=== PATIENT | male | born 1960 | race Caucasian/White ===

== ENCOUNTER 2017-05-03 09:13 | Emergency (ER) | payer BC ==
[2017-05-03] MEDS ORDERED: Albuterol/Ipratropium NEB.SOL* Albuterol 2.5 MG/Ipratropium 0.5 MG 3 ML INH ONE (09:33)
--- NOTE | 2017-05-03 09:33 | UC ---
Respiratory Complaint HPI - HPI Summary HPI Summary: 56 YEAR OLD MALE PRESENTS WITH COMPLAINS OF COUGH AND CHEST CONGESTION AFTER COMING HOME FROM [place]. - History of Current Complaint Stated Complaint: RESPIRATORY Time Seen by Provider: 05/03/17 09:33 - Allergies/Home Medications Allergies/Adverse Reactions: Allergies Allergy/AdvReac Type Severity Reaction Status Date / Time No Known Allergies Allergy Verified 05/03/17 10:17 Home Medications: Home Medications Cyclobenzaprine TAB* [Flexeril 10 MG TAB*] 1 tab PRN 05/03/17 [History] Meloxicam 1 tab PRN 05/03/17 [History] PMH/Surg Hx/FS Hx/Imm Hx Previously Healthy: Yes - Surgical History Surgical History: Yes Surgery Procedure, Year, and Place: Bilateral Knee Arthroscopies. Left Thumb Trigger Finger Release - Family History Known Family History: Positive: None - Social History Alcohol Use: Rare Substance Use Type: None Smoking Status (MU): Heavy Every Day Tobacco Smoker Type: Cigarettes Amount Used/How Often: 1 pack day Have You Smoked in the Last Year: Yes - Immunization History Hx Tetanus, Diphtheria Vaccination: Yes Review of Systems Constitutional: Negative Skin: Negative Eyes: Negative ENT: Negative Respiratory: Cough Cardiovascular: Negative Gastrointestinal: Negative Genitourinary: Negative Motor: Negative Neurovascular: Negative Musculoskeletal: Negative Neurological: Negative Psychological: Negative All Other Systems Reviewed And Are Negative: Yes Physical Exam Triage Information Reviewed: Yes Eye Exam: Normal ENT: Positive: Pharyngeal erythema, Nasal congestion, Nasal drainage Dental Exam: Normal Neck exam: Normal Neck: Positive: 1 Respiratory: Positive: Rhonchi, Wheezing Cardiovascular Exam: Normal Abdominal Exam: Normal Musculoskeletal Exam: Normal Neurological Exam: Normal Psychological Exam: Normal Skin Exam: Normal Respiratory Course/Dx - Differential Dx/Diagnosis Provider Diagnoses: COUGH. CHEST CONGESTION Discharge - Discharge Plan Condition: Stable Disposition: HOME Prescriptions: Albuterol HFA INHALER* [Ventolin HFA Inhaler*] 1 puff INH Q6H PRN #1 mdi PRN Reason: Wheezing Azithromyxin KASEY (NF) [Z-Kasey (Zithromax) 250 mg tabs #6] 2 tab PO .TODAY, THEN 1 DAILY #6 tab guaiFENesin/CODIEN 100MG-10MG* [Robitussin AC 100Mg-10Mg*] 5 ml PO Q6H PRN #120 udc MDD 20 ML PRN Reason: Cough predniSONE TAB* [Deltasone TAB*] 40 mg PO DAILY #10 tab Patient Education Materials: Acute Bronchitis (ED) Referrals: Ryan Pickard MD [Medical Doctor] - If Needed
[2017-05-03] MEDS ORDERED: predniSONE TAB* 20 MG PO ONE (09:34)
[2017-05-03 10:25] VITALS: BP 126/76
== END 2017-05-03 10:34 | disposition home or self-care (01) ==
LOC: UCCORT 09:13
DX: R05 Cough (principal); R09.89 Other specified symptoms and signs involving the circulatory and respiratory systems; F17.210 Nicotine dependence, cigarettes, uncomplicated
CPT/HCPCS: 99212; A9270-GY; G0463; J7512

== ENCOUNTER 2017-06-26 07:17 | Emergency (ER) | payer BC ==
[2017-06-26 07:42] VITALS: BP 128/70
--- NOTE | 2017-06-26 07:43 | UC ---
Respiratory Complaint HPI - HPI Summary HPI Summary: cough, scratchy throat since yesterday. - History of Current Complaint Chief Complaint: UCRespiratory Stated Complaint: SORE THROAT CONGESTION Time Seen by Provider: 06/26/17 07:25 Hx Obtained From: Patient Onset/Duration: Gradual Onset Timing: Constant Severity Initially: Mild Severity Currently: Moderate Character: Cough: Nonproductive Aggravating Factors: Nothing Alleviating Factors: Nothing Associated Signs And Symptoms: Positive: URI, Nasal Congestion, Hoarseness. Negative: Dyspnea, Fever, Chills, Pleuritic Chest Pain, Wheezing, Hemoptysis, Dizziness, Calf Pain, Calf Swelling - Allergies/Home Medications Allergies/Adverse Reactions: Allergies Allergy/AdvReac Type Severity Reaction Status Date / Time No Known Allergies Allergy Verified 06/26/17 07:21 PMH/Surg Hx/FS Hx/Imm Hx Previously Healthy: No - bronchitis - Surgical History Surgical History: Yes Surgery Procedure, Year, and Place: Bilateral Knee Arthroscopies. Left Thumb Trigger Finger Release. CATARACHS - Family History Known Family History: Positive: None - Social History Occupation: Employed Full-time Alcohol Use: Rare Substance Use Type: None Smoking Status (MU): Heavy Every Day Tobacco Smoker Type: Cigarettes Amount Used/How Often: 1 pack day Have You Smoked in the Last Year: Yes Household Exposure Type: Cigarettes - Immunization History Most Recent Influenza Vaccination: MAY 2017 Most Recent Tetanus Shot: UTD Hx Tetanus, Diphtheria Vaccination: Yes Review of Systems Respiratory: Cough All Other Systems Reviewed And Are Negative: Yes Physical Exam Triage Information Reviewed: Yes Vital Signs: Initial Vital Signs Temp 98.3 F 06/26/17 07:24 Pulse 68 06/26/17 07:24 Resp 18 06/26/17 07:24 BP 128/70 06/26/17 07:24 Pulse Ox 97 06/26/17 07:24 Vital Signs Reviewed: Yes Eye Exam: Normal Eyes: Positive: Conjunctiva Clear ENT: Positive: Pharyngeal erythema, TMs normal. Negative: Tonsillar swelling, Tonsillar exudate, Trismus, Muffled/hoarse voice Neck exam: Normal Neck: Positive: Supple, Nontender, No Lymphadenopathy Respiratory Exam: Normal Respiratory: Positive: No respiratory distress, No accessory muscle use. Negative: Respiratory distress, Decreased breath sounds, Accessory muscle use, Crackles, Rhonchi, Stridor, Wheezing Cardiovascular Exam: Normal Cardiovascular: Positive: RRR, No Murmur, Pulses Normal, Brisk Capillary Refill Abdominal Exam: Normal Abdomen Description: Negative: Distended Musculoskeletal Exam: Normal Neurological Exam: Normal Neurological: Positive: Alert, Muscle Tone Normal. Negative: Fatigued Psychological Exam: Normal Skin: Negative: rashes UC Diagnostic Evaluation - Laboratory O2 Sat by Pulse Oximetry: 97 Respiratory Course/Dx - Course Course Of Treatment: uri symptoms. z pack rx for delayed pickle pumper on day 10 if not better as he is a smoker. supportive care described otherwise. - Differential Dx/Diagnosis Provider Diagnoses: uri. chest cold. Discharge - Discharge Plan Condition: Good Disposition: HOME Prescriptions: Azithromycin TAB* [Zithromax TAB (Z-KASEY) 250 mg #6 tabs] 250 mg PO DAILY #6 tab Patient Education Materials: Upper Respiratory Infection (ED) Referrals: Meghna Shahid MD [Primary Care Provider] - If Needed
== END 2017-06-26 07:46 | disposition home or self-care (01) ==
LOC: UCCORT 07:17
DX: J06.9 Acute upper respiratory infection, unspecified (principal); R09.89 Other specified symptoms and signs involving the circulatory and respiratory systems; F17.210 Nicotine dependence, cigarettes, uncomplicated
CPT/HCPCS: 99212; G0463

== ENCOUNTER 2017-10-07 18:03 | Emergency (ER) | payer BC ==
[2017-10-07 19:30] VITALS: BP 148/71
--- NOTE | 2017-10-07 19:45 | UC ---
FLU HPI - HPI Summary HPI Summary: Pt c/o of generalized malaise, fever chills, cough, X 1 week. Pt reports that he did get a flu vaccine this year. - History of Current Complaint Chief Complaint: UCGeneralIllness Stated Complaint: FEVER/CHILLS Time Seen by Provider: 10/07/17 19:34 Hx Obtained From: Patient Onset/Duration: Sudden Onset, Lasting Weeks - 1 Severity Currently: Mild Severity Initially: Mild Associated Signs & Symptoms: Positive: Fever, Myalgia, Cough, Headache Related Hx: Possible Flu/Infectious Exposure - Allergy/Home Medications Allergies/Adverse Reactions: Allergies Allergy/AdvReac Type Severity Reaction Status Date / Time No Known Allergies Allergy Verified 10/07/17 19:30 Home Medications: Home Medications Multiple Vitamins W/ Minerals [Multivitamin Adults] 1 tab PO DAILY 10/07/17 [ History Confirmed 10/07/17] PMH/Surg Hx/FS Hx/Imm Hx Previously Healthy: Yes - Surgical History Surgical History: Yes Surgery Procedure, Year, and Place: Bilateral Knee Arthroscopies. Left Thumb Trigger Finger Release. B/L CATARACT SX - Family History Known Family History: Positive: Cardiac Disease - Social History Occupation: Employed Full-time Lives: With Family Alcohol Use: Rare Substance Use Type: None Smoking Status (MU): Heavy Every Day Tobacco Smoker Type: Cigarettes Amount Used/How Often: 1 pack day Length of Time of Smoking/Using Tobacco: 30 YRS Have You Smoked in the Last Year: Yes Household Exposure Type: Cigarettes - Immunization History Most Recent Influenza Vaccination: 2016 Most Recent Tetanus Shot: UTD Hx Tetanus, Diphtheria Vaccination: Yes Review of Systems Constitutional: Fever, Chills, Fatigue Skin: Negative Eyes: Negative ENT: Negative Respiratory: Cough Cardiovascular: Negative Gastrointestinal: Negative Genitourinary: Negative Motor: Negative Neurovascular: Negative Musculoskeletal: Myalgia Neurological: Negative Psychological: Negative Is Patient Immunocompromised?: No All Other Systems Reviewed And Are Negative: Yes Physical Exam Triage Information Reviewed: Yes Appearance: Ill-Appearing Vital Signs: Initial Vital Signs Temp 100.5 F 10/07/17 19:21 Pulse 93 10/07/17 19:21 Resp 16 10/07/17 19:21 BP 148/71 10/07/17 19:21 Pulse Ox 97 10/07/17 19:21 Vital Signs Reviewed: Yes Eye Exam: Normal ENT Exam: Other ENT: Positive: Nasal congestion Dental Exam: Normal Neck exam: Normal Respiratory Exam: Normal Cardiovascular Exam: Normal Musculoskeletal Exam: Normal Neurological Exam: Normal Psychological Exam: Normal Skin Exam: Normal Flu Course/Dx - Differential Dx/Diagnosis Differential Diagnosis/HQI/PQRI: Bronchitis, Influenza, Pneumonia Provider Diagnoses: Bronchitis Discharge - Discharge Plan Condition: Stable Disposition: HOME Prescriptions: Azithromycin TAB* [Zithromax TAB (Z-KASEY) 250 mg #6 tabs] 2 tab PO .TODAY, THEN 1 DAILY #1 kasey Benzonatate CAP* [Tessalon 100 MG CAP*] 100 mg PO Q8H PRN #15 cap PRN Reason: Cough Patient Education Materials: Acute Bronchitis (ED) Referrals: Meghna Shahid MD [Primary Care Provider] - If Needed Additional Instructions: Please follow up with your PCP or return to clinic as needed. Please note that your Blood pressure was elevated at today's visit. please follow up with your PCP regarding this finding.
== END 2017-10-07 19:52 | disposition home or self-care (01) ==
LOC: UCCORT 18:03
DX: J40 Bronchitis, not specified as acute or chronic (principal); F17.210 Nicotine dependence, cigarettes, uncomplicated
CPT/HCPCS: 87502; 99212; G0463

== ENCOUNTER 2018-01-14 07:02 | Day surgery (SDC) | payer BC ==
--- NOTE | 2018-01-07 10:10 | HP ---
PREOPERATIVE HISTORY AND PHYSICAL: DATE OF SURGERY/ADMISSION: 01/14/18 [facility] DATE OF OFFICE VISIT/ENCOUNTER: 01/06/18 ATTENDING SURGEON: Kala Newsome MD * (DICTATED BY NOLA BELTRAN) PROCEDURE: Right thumb trigger finger release. CHIEF COMPLAINT: Right thumb triggering. HISTORY OF PRESENT ILLNESS: This is a 57-year-old male who complains of triggering and locking of his right thumb. This has been ongoing for quite sometime now. He has recently been seeing Dr. Gruber and has had 3 cortisone injections for the right thumb over time. Each time, the cortisone injection has given him relief, but he is now interested in proceeding with surgical intervention. He does not recall any injury. He denies any associated tingling or numbness. He had a left trigger thumb release done in the past and has done very well with that. PAST MEDICAL HISTORY: 1. Prostate cancer. 2. Sciatica. PAST SURGICAL HISTORY: 1. Left thumb trigger finger release. 2. Bilateral cataracts. 3. Bilateral knee arthroscopies. 4. Hernia repair. CURRENT MEDICATIONS: 1. Cialis 5 mg daily. 2. Cyclobenzaprine HCl 5 mg p.r.n. 3. Meloxicam 15 mg daily. ALLERGIES: No known drug allergies. FAMILY MEDICAL HISTORY: Aortic aneurysm, colon cancer, lung cancer, heart disease. 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 He is a current smoker, he smokes less than a pack per day and has done so for the past 30 years. He denies recreational drug use. He drinks alcohol on an infrequent basis. REVIEW OF SYSTEMS: General: Negative for fevers, chills, or night sweats. No known anesthesia problems. HEENT: Negative for headache, lightheadedness, syncopal episodes. Integumentary: Negative for abrasions, lesions, or open wounds. Cardiothoracic: Negative for hypertension, chest pain, palpitations, or edema. Pulmonary: Negative for shortness of breath with exertion, chronic cough, or COPD. GI: Negative for nausea, vomiting, diarrhea, constipation, or GERD. : Negative for nocturia, urinary frequency, urgency, history of UTIs, or kidney problems. Musculoskeletal: Positive for current complaint. Positive for intermittent back pain/sciatica. Neurological: Negative for paresthesias, numbness, history of seizure, stroke, or epilepsy. Hematologic: Negative for easy bruising, anemia, excessive bleeding, or history of DVT. Infectious Disease: Negative for history of MRSA, hepatitis C, or HIV. PHYSICAL EXAMINATION GENERAL: Well-developed, well-nourished 57-year-old male, in no acute distress. VITAL SIGNS: Height 5 feet 10.5 inches, weight 182 pounds, pulse rate 72, and blood pressure 124/76. HEENT: Normocephalic and atraumatic. Pupils are equal, round, and reactive to light and accommodation. Extraocular movements are intact. NECK: Supple. No palpable lymph nodes. Throat is clear. PULMONARY: Lungs are clear to auscultation bilaterally. No wheezes, rales, or rhonchi. CARDIOVASCULAR: Regular rate and rhythm. S1 and S2. No murmurs, rubs, or gallops. No edema. ABDOMEN: Positive bowel sounds, soft, and nontender. NEUROLOGIC: Alert and oriented x3. Cranial nerves II through XII are intact. Sensation is intact to light touch. MUSCULOSKELETAL: On exam of the right hand, he has tenderness at the A1 marco of the thumb and triggering with flexion. SKIN: Intact. NEUROVASCULAR FUNCTION: Intact. IMPRESSION: Right trigger thumb. PLAN/RECOMMENDATIONS: The patient is scheduled to undergo a right thumb trigger finger release with Dr. Newsome on 01/14/18. He will return to the office 10 days postop for followup and suture removal. A prescription for Ultracet was e-scribed to the patient's pharmacy for postoperative pain management. NOLA BELTRAN [id number]/[facility] #: [id number] SALTY
[~2018-01-14 07:02] MED LIST: Buffered Lidocaine 0.9% SYRIN* 5 ML/SYR SYRINGE INTRADERM ONE; Famotidine TAB* 20 MG PO ONE
[2018-01-14] MEDS ORDERED: fentaNYL* 50 MCG/ML 2 ML VIAL (100 MCG VIAL) ONE (07:38)
[2018-01-14] MEDS ORDERED: Midazolam* 1 MG/ML 5 ML VIAL (5 MG) ONE (07:39)
[2018-01-14] MEDS ORDERED: Famotidine TAB* 20 MG ONE (07:45)
[2018-01-14] MEDS ORDERED: Acetaminophen TAB* 325 MG PO PRN (07:51)
[2018-01-14] MEDS ORDERED: oxyCODONE TAB* 5 MG TAB PO PRN (07:51)
[2018-01-14] MEDS ORDERED: DiMENhydriNATE IV* 50 MG/ML VIAL IV PUSH PRN (07:51)
[2018-01-14] MEDS ORDERED: Naloxone* 0.4 MG/ML 1 ML VIAL IV PRN (07:51)
[2018-01-14] MEDS ORDERED: Lidocaine 1% INJ* 10 MG/ML 30 ML SDV ONE (08:55)
[2018-01-14] MEDS ORDERED: Ketorolac INJ* 30 MG/ML 1 ML VIAL ONE (09:14)
[2018-01-14] MEDS ORDERED: Lidocaine 2% PF * 5 ML VIAL ONE (09:14)
[2018-01-14] MEDS ORDERED: Propofol* 10 MG/ML 20 ML BTL IV PUSH ONE (09:14)
[2018-01-14] MEDS ORDERED: Ondansetron INJ* 2 MG/ML VIAL ONE (09:14)
[2018-01-14 10:07] VITALS: BP 106/68
--- NOTE | 2018-01-15 12:00 | OP ---
CC: Kala Newsome MD OPERATIVE REPORT: DATE OF OPERATION: 01/14/18 DATE OF : 56 SURGEON: Kala Newsome MD BOILING TUB OPERATOR: NOLA Dowling ANESTHESIA: Local MAC. PRE-OP DIAGNOSIS: Right trigger thumb. POST-OP DIAGNOSIS: Right trigger thumb. OPERATIVE PROCEDURE: Right trigger thumb release. ESTIMATED BLOOD LOSS: Zero. TOURNIQUET TIME: Approximately 5 minutes. INDICATIONS FOR PROCEDURE: Enrique is a very pleasant 57-year-old man who complains of triggering an d locking of his right thumb. He previously had a left trigger thumb release with good result, prese nts for the same on the right. DESCRIPTION OF PROCEDURE: The patient was brought to the operating room, was given a sedation anesth etic and a local infiltration of 10 cc of 1% plain lidocaine at the MP flexion crease of his right th umb. Skin of his right hand and forearm was prepped and draped in the usual sterile fashion. The [place] and forearm were exsanguinated and the tourniquet elevated to 250 mmHg. A transverse incision was made centered at the A1 marco of the right thumb. We dissected bluntly through the subcutaneous ti ssue down to the A1 marco. The digital neurovascular bundles were retracted by the surgical assista nt, Anay Chou. The A1 marco was incised longitudinally completely releasing the flexor tendon, which was in good condition. The wound was irrigated and the skin edges reapproximated with 4-0 nyl on suture. The wound was dressed with Xeroform, 4 x 4, Webril, and an Jose wrap. The patient tolerate d the procedure well and was brought to the recovery room in good condition. [id number]/[facility] #: [id number]
== END 2018-01-14 09:50 | disposition home or self-care (01) ==
LOC: OREAST 07:02
PROVIDERS: ATTEND Orthopaedic Surgery
DX: M65.311 Trigger thumb, right thumb (principal); Z85.46 Personal history of malignant neoplasm of prostate; Z72.0 Tobacco use; J43.9 Emphysema, unspecified
CPT/HCPCS: A9270-GY; J1885; J2250; J2405; J2704; J3010

== ENCOUNTER 2018-09-19 07:36 | Emergency (ER) | payer BC ==
[2018-09-19 07:52] VITALS: BP 137/77
--- NOTE | 2018-09-19 08:05 | UC ---
Throat Pain/Nasal Emery HPI - HPI Summary HPI Summary: sore throat x 6 days + nasal congestion , post nasal drip sinus pain and pressure, low grade fever, chills, dry cough - History of Current Complaint Chief Complaint: UCRespiratory Stated Complaint: HEAD/CHEST CONGESTIION SORE THROAT Time Seen by Provider: 09/19/18 07:52 Hx Obtained From: Patient Onset/Duration: Gradual Onset, Lasting Days - 6, Still Present Severity: Moderate Pain Intensity: 4 Cough: Nonproductive Associated Signs & Symptoms: Positive: Sinus Discomfort, Nasal Discharge, Fever. Negative: Dysphagia, FB Sensation, Drooling, Wheezing, Hoarseness, Vomiting, Rash - Allergies/Home Medications Allergies/Adverse Reactions: Allergies Allergy/AdvReac Type Severity Reaction Status Date / Time No Known Allergies Allergy Verified 09/19/18 07:49 PMH/Surg Hx/FS Hx/Imm Hx Respiratory History: COPD - Surgical History Surgical History: Yes Surgery Procedure, Year, and Place: Bilateral Knee Arthroscopies. Left Thumb Trigger Finger Release. B/L CATARACT SX. bilat inguinal hernia repair. left inguinal hernia repaired x2 - Family History Known Family History: Positive: None, Cardiac Disease - Social History Alcohol Use: Rare Substance Use Type: None Smoking Status (MU): Heavy Every Day Tobacco Smoker Type: Cigarettes Amount Used/How Often: <1 PPD Length of Time of Smoking/Using Tobacco: Since Age 18 Have You Smoked in the Last Year: Yes Household Exposure Type: Cigarettes - Immunization History Most Recent Influenza Vaccination: 2016 Most Recent Tetanus Shot: UTD Hx Tetanus, Diphtheria Vaccination: Yes Review of Systems All Other Systems Reviewed And Are Negative: Yes Constitutional: Positive: Negative Skin: Positive: Negative Eyes: Positive: Negative ENT: Positive: Sore Throat, Nasal Discharge, Sinus Congestion, Sinus Pain/ Tenderness Respiratory: Positive: Cough Cardiovascular: Positive: Negative Is Patient Immunocompromised?: No Physical Exam Triage Information Reviewed: Yes Appearance: Well-Appearing, No Pain Distress, Well-Nourished Vital Signs: Initial Vital Signs Temp 98.3 F 09/19/18 07:48 Pulse 88 09/19/18 07:48 Resp 24 09/19/18 07:48 BP 137/77 09/19/18 07:48 Pulse Ox 96 09/19/18 07:48 Vital Signs Reviewed: Yes Eye Exam: Normal Eyes: Positive: Conjunctiva Clear ENT: Positive: Normal ENT inspection, Hearing grossly normal, Pharyngeal erythema, Nasal congestion, Nasal drainage, TMs normal, Sinus tenderness. Negative: TM bulging, TM dull, TM red, Tonsillar swelling, Tonsillar exudate Neck exam: Normal Neck: Positive: Supple, Nontender, No Lymphadenopathy Respiratory: Positive: Chest non-tender, Lungs clear, Normal breath sounds Cardiovascular: Positive: RRR, No Murmur, Pulses Normal Skin Exam: Normal Throat Pain/Nasal Course/Dx - Differential Dx/Diagnosis Provider Diagnosis: Sinusitis Discharge - Sign-Out/Discharge Documenting (check all that apply): Patient Departure All imaging exams completed and their final reports reviewed: No Studies - Discharge Plan Condition: Stable Disposition: HOME Prescriptions: Amoxicillin/Clavulanate TAB* [Augmentin TAB 875*] 875 mg PO BID #20 tab Fluticasone NASAL SPRAY 50MCG* [Flonase NASAL SPRAY 50MCG*] 2 spray BOTH NARES DAILY #1 btl Patient Education Materials: Sinusitis (ED) Referrals: Meghna Shahid MD [Primary Care Provider] - If Needed - Billing Disposition and Condition Condition: STABLE Disposition: Home
== END 2018-09-19 08:08 | disposition home or self-care (01) ==
LOC: UCCORT 07:36
DX: J32.9 Chronic sinusitis, unspecified (principal); F17.210 Nicotine dependence, cigarettes, uncomplicated
CPT/HCPCS: 99212; G0463

== ENCOUNTER 2018-11-10 07:58 | Emergency (ER) | payer BC ==
--- OUTSIDE RECORDS SUMMARY | 2018-11-10 08:10 | XMS REPORT | Continuity of Care Document ---
:1960 External Reference #:[id number] Author Name Chanelle Longoria Care Team Providers Name Role Phone Meghna Shahid MD Primary Care Physician Unavailable Payers Type Date Identification Numbers Payment Provider Subscriber Policy Number: [id number] Kerry Winkler PayID: [id number] [address] [address] [place] [address] Advance Directives Description No Information Available Problems Description No Information Family History Date Family Member(s) Problem(s) Comments Father due to Lung Cancer () Mother due to bowel perforation () Social History Type Date Description Comments Sex Unknown Lives With Occupation Currently Working ETOH Use Rarely consumes alcohol Tobacco Use Start: Unknown Light tobacco smoker (10 or fewer cigarettes/day) Recreational Drug Use Denies Drug Use Smoking Status Reviewed: 10/13/18 Light tobacco smoker (10 or fewer cigarettes/day) Allergies, Adverse Reactions, Alerts Description No Known Drug Allergies Medications Medication Date Status Form Strength Qnty SIG Indications Ordering Provider Meloxicam 00// Active Tablets 15mg Unknown 0000 Cyclobenzaprine / Active Tablets 5mg 1-2 tabs Unknown HCL 0000 by mouth every night at bedtime Tadalafil 00/ Active Tablets 20mg as needed Unknown 0000 use as directed Immunizations Description No Information Available Vital Signs Date Vital Result Comment 10/17/2018 10:29am BP Systolic 143 mmHg BP Diastolic 86 mmHg Body Temperature 98.5 F Heart Rate 70 /min Respiratory Rate 18 /min Weight 186.25 lb O2 % BldC Oximetry 97 % Pain Level 0 siatic pain occasionally Results Test Date Facility Test Result H/L Range Note Laboratory test 10/17/2018 [facility] Prostate 0.32 ng/mL < 4.0 1, [address] [place] [address] Antigen [phone] Urine Dipstick 10/17/2018 [facility] Ua Color yellow Yellow Ua Clarity clear Clear Ua Leuko neg Negative Ua Nitrite neg Negative Ua Urobilinogen 0.2 0.2 - 1.0 E.U./dL Ua Protein neg Negative Ua PH 6.0 Low 6.5-7.5 Ua Blood neg Negative Ua Specific [place] 1.015 1.010-1.030 Ua Ketones neg Negative Ua Bilirubin neg Negative Ua Glucose neg Negative 1 C61 2 THIS ASSAY IS NOT INTENDED A CANCER SCREENING TEST The concentration of PSA in a given specimen, determined with assays from different manufacturers, can vary due to differences in assay methods and reagent specificity. Values obtained from different assay methods cannot be used interchangeably. Method: [email or web address] [place] Chemiluminescent immunoassay. Procedures Date Code Description Status 02/21/2016 85316 EKG Interpretation And Report Only Completed 01/10/2015 84548 Anesthesia, Repair Hernia Lower Abdomen Completed 01/04/2015 81837 EKG Interpretation And Report Only Completed Encounters Type Date Location Provider Dx Diagnosis Office Visit 10/17/2018 10:30a [facility]rology Rene Vasquez, C61 Malignant neoplasm of PA prostate N52.35 Erectile dysfunction following radiation therapy Plan of Treatment Future Appointment(s):04/16/2019 9:00 am - Arlene Goldstein M.D. at [email or web address] - Rene Vasquez, PAC61 Malignant neoplasm of prostateNew Labs: Prostate Specific Antigen, Ordered: 10/17/18Comments:Most recent PSA @ baseline. Todays PSA is drawn and pending. Unless otherwise indicated FU 6 mo withPSA [id number] Erectile dysfunction following radiation therapyComments: Continues on PDE5 therapy. Call fors reviewed.
--- OUTSIDE RECORDS SUMMARY | 2018-11-10 08:10 | XMS REPORT | Continuity of Care Document ---
:1960 External Reference #:[id number] Author Name Arlene Goldstein M.D. Address [address] [facility] [address] [place] [address] Care Team Providers Name Role Phone Meghna Shahid MD Primary Care Physician Unavailable Payers Type Date Identification Numbers Payment Provider Subscriber Policy Number: [id number] Kerry Winkler PayID: [id number] [address] [address] [place] [address] Advance Directives Description No Information Available Problems [...] Strength Qnty SIG Indications Ordering Provider Meloxicam 00/00/ Active Tablets 15mg Unknown 0000 Cyclobenzaprine 00/00/ Active Tablets 5mg 1-2 tabs Unknown HCL 0000 by mouth every night at bedtime Tadalafil 00/00/ Active Tablets 20mg as needed Unknown 0000 [...] Result H/L Range Note Laboratory test 10/17/2018 [facility] Prostate <pending> finding [address] [place] [address] Antigen [phone] Urine Dipstick 10/17/2018 [facility] Ua Color yellow Yellow Ua Clarity clear Clear Ua Leuko neg Negative Ua Nitrite neg Negative Ua Urobilinogen 0.2 0.2 - 1.0 E.U./dL Ua Protein neg Negative Ua PH 6.0 Low 6.5-7.5 Ua Blood neg Negative Ua Specific [place] 1.015 1.010-1.030 Ua Ketones neg Negative Ua Bilirubin neg Negative Ua Glucose neg Negative Procedures Date Code Description Status 02/21/2016 45728 EKG Interpretation And Report Only Completed 01/10/2015 92337 Anesthesia, Repair Hernia Lower Abdomen Completed 01/04/2015 76065 EKG Interpretation And Report Only Completed Encounters Type Date Location Provider Dx Diagnosis Office Visit 10/17/2018 10:30a Urology Rene Vasquez, C61 Malignant neoplasm of PA prostate N52.35 Erectile dysfunction following radiation therapy Plan of Treatment Future Appointment(s):04/16/2019 9:00 am - Arlene Goldstein M.D. at [id number] - Rene Vasquez, PAC61 Malignant neoplasm of prostateNew Labs: Prostate Specific Antigen, Ordered: 10/17/18Comments:Most recent PSA @ baseline. Todays PSA is drawn and pending. Unless otherwise indicated FU 6 mo withPSA [id number] Erectile dysfunction following radiation therapyComments: Continues on PDE5 therapy. Call fors reviewed.
[2018-11-10 08:16] VITALS: BP 127/69
--- NOTE | 2018-11-10 08:31 | UC ---
UC General HPI - HPI Summary HPI Summary: Saturday scratchy throat then malaise and now headache, fever, congestion. Admits to bodyaches. - History of Current Complaint Chief Complaint: UCRespiratory Stated Complaint: FEVER,JAVIER,COUGH Time Seen by Provider: 11/10/18 08:17 Hx Obtained From: Patient Timing: Constant Pain Intensity: 3 Alleviating: nsaids, cold medications Associated Signs & Symptoms: Negative: Abdominal Pain, Cough, Chest Pain, Diarrhea, SOB, Vomiting - Allergy/Home Medications Allergies/Adverse Reactions: Allergies Allergy/AdvReac Type Severity Reaction Status Date / Time No Known Allergies Allergy Verified 11/10/18 08:09 Home Medications: Home Medications D-Methorphan/PE/Acetaminophen [Theraflu Severe Cold Mult 20-10-500 mg] 1 kourtney PO DAILY PRN 11/10/18 [History Confirmed 11/10/18] PMH/Surg Hx/FS Hx/Imm Hx - Surgical History Surgical History: Yes Surgery Procedure, Year, and Place: Bilateral Knee Arthroscopies. Left Thumb Trigger Finger Release. B/L CATARACT SX. bilat inguinal hernia repair. left inguinal hernia repaired x2 - Family History Known Family History: Positive: None, Cardiac Disease - Social History Lives: With Family Alcohol Use: Rare Substance Use Type: None Smoking Status (MU): Heavy Every Day Tobacco Smoker Type: Cigarettes Amount Used/How Often: 1/2 PPD Length of Time of Smoking/Using Tobacco: Since Age 18 Have You Smoked in the Last Year: Yes Household Exposure Type: Cigarettes - Immunization History Most Recent Influenza Vaccination: 2016 Most Recent Tetanus Shot: UTD Hx Tetanus, Diphtheria Vaccination: Yes Review of Systems All Other Systems Reviewed And Are Negative: Yes Constitutional: Positive: Fever, Chills, Fatigue Skin: Positive: Negative Eyes: Positive: Negative ENT: Positive: Sinus Congestion Respiratory: Positive: Negative Cardiovascular: Positive: Negative Gastrointestinal: Positive: Negative Genitourinary: Positive: Negative Motor: Positive: Negative Neurovascular: Positive: Negative Musculoskeletal: Positive: Myalgia Neurological: Positive: Headache Psychological: Positive: Negative Is Patient Immunocompromised?: No Physical Exam Triage Information Reviewed: Yes Appearance: Well-Appearing Vital Signs: Initial Vital Signs Temp 98.4 F 11/10/18 08:11 Pulse 77 11/10/18 08:11 Resp 17 11/10/18 08:11 BP 127/69 11/10/18 08:11 Pulse Ox 94 11/10/18 08:11 Vital Signs Reviewed: Yes Eyes: Positive: Conjunctiva Clear ENT: Positive: Pharynx normal, TMs normal. Negative: Nasal drainage, Sinus tenderness Neck: Positive: Supple, Nontender, No Lymphadenopathy Respiratory: Positive: Lungs clear, Normal breath sounds, No respiratory distress Cardiovascular: Positive: RRR, No Murmur Abdomen Description: Positive: Nontender, No Organomegaly, Soft Bowel Sounds: Positive: Present Musculoskeletal: Positive: ROM Intact Neurological: Positive: Alert Psychological: Positive: Age Appropriate Behavior Skin Exam: Normal Diagnostics - Laboratory Diagnostic Studies Completed/Ordered: rapid flu=negative Course/Dx - Course Course Of Treatment: no indication for antibiotics. - Differential Dx - Multi-Symptom Differential Diagnoses: Other - influenza/viral syndrom/uri/sinusitis - Diagnoses Provider Diagnosis: Viral syndrome Discharge - Sign-Out/Discharge Documenting (check all that apply): Patient Departure All imaging exams completed and their final reports reviewed: No Studies - Discharge Plan Condition: Stable Disposition: HOME Patient Education Materials: Viral Syndrome (ED) Forms: *Work Release Referrals: Meghna Farrell MD [Primary Care Provider] - 5 Days Additional Instructions: FOLLOW UP DR FARRELL IF NOT BETTER IN 5 DAYS OR SOONER IF WORSE - Billing Disposition and Condition Condition: STABLE Disposition: Home
[2018-11-10 08:35] LABS: Influenza A Molecular NEGATIVE (Negative); Influenza B Molecular NEGATIVE (Negative)
== END 2018-11-10 08:41 | disposition home or self-care (01) ==
LOC: UCCORT 07:58
DX: B34.9 Viral infection, unspecified (principal); R51 Headache; R09.89 Other specified symptoms and signs involving the circulatory and respiratory systems; R53.81 Other malaise; R09.81 Nasal congestion; M79.10 Myalgia, unspecified site; F17.210 Nicotine dependence, cigarettes, uncomplicated
CPT/HCPCS: 99211; G0463